=== PATIENT | male | born 1965 | race Caucasian/White ===

== ENCOUNTER 2022-03-08 16:05 | Emergency (ER) | payer SELFPAY ==
[2022-03-08 16:21] VITALS: BP 129/80; PULSE 84; RESP 16; TEMP 36.5; O2SAT 98
--- NOTE | 2022-03-08 16:40 | ED.GENADULT ---
HPI - General Adult General Chief complaint: Urogenital-Male Stated complaint: STD Testing Time Seen by Provider: 03/08/22 16:30 History of Present Illness HPI narrative: Matthew Heard is a 57-year-old male with no PMH who comes to [facility] to discuss getting a suppression drug for herpes. He believes that he is a carrier of herpes because his ex- and now his current who has not seen in the last 8 months states that she has been diagnosed with genital herpes and that she has only had him as a partner. However, they have not seen each other in 8 months and she lives in [place] ([facility]). Ex- also stated that she had gotten herpes sometime around her divorce and said he must have given to her. However he has never been symptomatic for herpes never had any painful sores never had any itching or any other lesion that would be suspicious for to be herpes. Because he is going to see his in [place] and 2 weeks he would like a suppressant dose of valacyclovir Related Data Home Medications Medication Instructions Recorded Confirmed No Home Medications 03/08/22 03/08/22 Allergies Allergy/AdvReac Type Severity Reaction Status Date / Time No Known Allergies Allergy Verified 03/08/22 16:27 Review of Systems Review of Systems: CONSTITUTIONAL: Denies fever, chills, sweats. EYES: Denies visual changes, redness, discharge. ENT: Denies rhinorrhea, congestion, sore throat, otalgia. CARDIOVASCULAR: Denies chest pain, palpitations, edema. RESPIRATORY: Denies dyspnea, wheezing, cough GASTROINTESTINAL: Denies abdominal pain, nausea, vomiting, diarrhea. GENITOURINARY: Denies dysuria, hematuria, abnormal discharge SKIN: Denies rash or itching. NEUROLOGIC: Denies numbness, or focal weakness. PSYCHIATRIC: Denies anxiety or depression. Pallavi negative ROS presently does not have any symptoms of STD or any lesions on genitals PMFSH Past Medical History Medical History No acute medical problems Comments At time of signature, I agree with nursing past medical, surgical, social and family history. There is no relevant family history pertinent to the presenting complaint. Exam Narrative: GENERAL: This is a well-nourished, well-developed patient, in mild distress. HEAD: normocephalic, atraumatic. EYES: Sclera clear/white. Vision is grossly intact. EARS: External ears normal, . Hearing grossly intact. NOSE: External nose normal without nasal discharge, nares without redness, no rhinorrhea. THROAT: Mucous membranes moist, NECK: Neck supple, CARDIOVASCULAR: Regular rate and rhythm without murmurs, gallops, or rubs. RESPIRATORY: Clear to auscultation. Breath sounds equal bilaterally. No wheezes, rales, or rhonchi. GASTROINTESTINAL: Not done SKIN: warm, intact with no suspicious lesions or rash, good texture and turgor. NEURO: awake, alert, and oriented to person, place and time. There were no obvious focal neurologic abnormalities. Steady gait EXTREMITIES: Normal range of motion. BACK: Nontender without deformity Denies any symptoms of STD Course Course Emergency Course: Patient here for discussion about herpes and his visit to his who has not seen a months in [place] in 2 weeks As we do not do herpes testing directly and he is asymptomatic recommended to go to health department to discuss screening for HSV and provides present herpes medication if in fact the culture is positive and his blood work is normal Level of Care: Express Care Visit Vital Signs Vital signs: Vital Signs Temperature 97.7 F 03/08/22 16:21 Pulse Rate 84 03/08/22 16:21 Respiratory Rate 16 03/08/22 16:21 Blood Pressure 129/80 03/08/22 16:21 Pulse Oximetry 98 03/08/22 16:21 Oxygen Delivery Room Air 03/08/22 16:21 Temperature 97.9 F 03/08/22 16:52 Pulse Rate 125 H 03/08/22 16:52 Respiratory Rate 18 03/08/22 16:52 Blood Pressure
[2022-03-08 16:52] VITALS: BP 170/87; PULSE 125; RESP 18; TEMP 36.6; O2SAT 97
== END 2022-03-08 16:53 | disposition home or self-care (01) ==
PROVIDERS: Emergency Provider Nurse Practitioner
DX: Z20.2 Contact with and (suspected) exposure to infections with a predominantly sexual mode of transmission (principal)
CPT/HCPCS: 99202; G0463

== ENCOUNTER 2023-03-16 06:59 | Emergency (ER) | payer OTHER, SELFPAY ==
--- NOTE | ~2023-03-16 | CT_ITS ---
EXAMINATION: CT abdomen pelvis wo con DATE: 03/16/2023 08:21 INDICATION: Left flank pain TECHNIQUE: Computed tomography (CT) of the abdomen and pelvis was performed without intravenous contr ast. The dose-length product was 685.25 mGy-cm. Automated exposure control and iterative reconstructi on technique were employed. COMPARISON: None. FINDINGS: Lung bases are unremarkable. Heart size normal. No significant pleural or pericardial effus ion. There is a 3 mm left UVJ stone with mild hydronephrosis. There are additional nonobstructing lef t renal stones measuring 2 mm or less. There are small subcentimeter hypodensities of the left kidney , too small to characterize. Gallbladder contains multiple stones and is distended. The liver, spleen, pancreas, adrenal glands and right kidney are unremarkable. Nonobstructive bowel g as pattern. No abnormal pelvic masses or fluid collections. Normal appendix. Mild lumbar spondylosis. IMPRESSION: 1. Left UVJ stone measuring 3 mm with mild hydronephrosis. 2: Left nephrolithiasis. 3: Cholelithiasis. Reviewed, dictated and finalized at location A.
[2023-03-16 07:05] VITALS: BP 137/82; PULSE 85; RESP 18; TEMP 36.5; O2SAT 99
[2023-03-16] MEDS: SODIUM CHLORIDE 0.9% IV 1,000 ML 999 ML IV CONT (07:41)
[2023-03-16] MEDS: ONDANSETRON INJ 4 MG/2 ML VIAL IV PUSH (07:42)
[2023-03-16] MEDS: KETOROLAC 30 MG/ML VIAL (*BKC) IV PUSH (07:42)
[2023-03-16 09:03] LABS: Appearance Urine Cloudy (Clear); Bacteria Urine None Seen /hpf; Bilirubin Urine 1+ (Negative); Blood Urine 3+ (Negative); Color Urine Dark Yellow (Yellow); Glucose Urine UA Trace mg/dL (Negative); Ketones Urine Trace mg/dL (Negative); Leukocyte Esterase Ur Negative LEU/UL (Negative); Nitrate Urine Negative (Negative); Non Pathogenic Casts 0-2; Protein Urine 1+ mg/dL (Negative); RBC Urine 51-100 /hpf (0-2); Specific Grav Ur 1.028 (1.001-1.035); Squamous Epithelial Cell Urine None seen /hpf (Few); WBC Urine 0-5 /hpf; pH Urine 5.5 (5.0-9.0)
[2023-03-16 09:08] LABS: Add Urine Microscopic? YES
[2023-03-16] MEDS: MORPHINE SULFATE (*CRX) 4 MG/ML INJ IV PUSH (09:22)
--- NOTE | 2023-03-16 09:25 | ED.GENADULT ---
HPI - General Adult General Chief complaint: Back Pain/Injury Stated complaint: low back pain Time Seen by Provider: 03/16/23 07:12 Related Data Allergies Allergy/AdvReac Type Severity Reaction Status Date / Time No Known Allergies Allergy Verified 03/16/23 07:41 [facility] Past Medical History Medical History No acute medical problems Course Vital Signs Vital signs: Vital Signs Temperature 97.7 F 03/16/23 07:05 Pulse Rate 85 03/16/23 07:05 Respiratory Rate 18 03/16/23 07:05 Blood Pressure 137/82 03/16/23 07:05 Pulse Oximetry 99 03/16/23 07:05 Oxygen Delivery Room Air 03/16/23 07:05 Temperature 97.7 F 03/16/23 07:05 Pulse Rate 85 03/16/23 07:05 Respiratory Rate 18 03/16/23 07:05 Blood Pressure 137/82 03/16/23 07:05 Pulse Oximetry 99 03/16/23 07:05 Oxygen Delivery Room Air 03/16/23 07:05 Medical Decision Making Vital Signs Vital Signs: Vital Signs Temperature 97.7 F 03/16/23 07:05 Pulse Rate 85 03/16/23 07:05 Respiratory Rate 18 03/16/23 07:05 Blood Pressure 137/82 03/16/23 07:05 Pulse Oximetry 99 03/16/23 07:05 Oxygen Delivery Room Air 03/16/23 07:05 Temperature 97.7 F 03/16/23 07:05 Pulse Rate 85 03/16/23 07:05 Respiratory Rate 18 03/16/23 07:05 Blood Pressure 137/82 03/16/23 07:05 Pulse Oximetry 99 03/16/23 07:05 Oxygen Delivery Room Air 03/16/23 07:05 Lab Data Labs: Lab Results 03/16/23 Range/Units 08:51 Urine Color Dark yellow (Yellow) Urine Appearance Cloudy H (Clear) Urine pH 5.5 (5.0-9.0) Ur Specific [place] 1.028 (1.001-1.035) Urine Protein 1+ H (Negative) mg/dL Urine Glucose (UA) Trace H (Negative) mg/dL Urine Ketones Trace H (Negative) mg/dL Ur Blood (Man) 3+ H (Negative) Urine Nitrate Negative (Negative) Urine Bilirubin 1+ H (Negative) Urine Urobilinogen 1.0 (<2.0) mg/dL Leukocyte Esterase Rfl Negative (Negative) YOLI/UL Urine RBC 51-100 (0-2) /hpf Urine WBC 0-5 /hpf Ur Squamous Epith Cells None seen (Few) /hpf Urine Bacteria None seen /hpf Urine Casts 0-2 Discharge Plan Discharge Clinical Impression: Ureterolithiasis Patient Disposition: Home, Self-Care Condition: Stable Instructions: Kidney Stones (ED) Additional Instructions: You are passing a 3 mm kidney stone on the left side. You are being prescribed medication for pain and nausea as well as medication to help you pass your stone quicker. Follow-up with urology if your symptoms persist. Return to the ER if you cannot keep down food/water/medication, you have fever over 100.4 ?F, you have additional concerns. Prescriptions: New hydrocodone-acetaminophen 5-325 mg tablet 1 tablet PO Q6H PRN (Reason: pain) Qty: 20 0RF tamsulosin 0.4 mg capsule 0.4 mg PO DAILY Qty: 7 0RF ondansetron 4 mg tablet,disintegrating 4 mg PO Q6H PRN (Reason: nausea and vomiting) Qty: 10 0RF Follow-up/Referrals: [facility], [Primary Care Provider] - Francisco Morales MD [Physician] - 1 Week
[2023-03-16 10:06] VITALS: BP 121/83; PULSE 80; RESP 17; O2SAT 100
== END 2023-03-16 10:07 | disposition home or self-care (01) ==
PROVIDERS: Emergency Provider Emergency Medicine
DX: N13.2 Hydronephrosis with renal and ureteral calculous obstruction (principal); K80.20 Calculus of gallbladder without cholecystitis without obstruction
CPT/HCPCS: 74176; 81001; 99284; J1885; J2270; J2405; J7030